=== PATIENT | female | born 1980 | race African-American/Black ===

== ENCOUNTER 2017-05-05 20:41 | Emergency (ER) | payer OTHER ==
[~2017-05-05] VITALS: Ht 172.7 cm; Wt 129.3 kg
[~2017-05-05 20:41] MED LIST: ACETAMINOPHEN-1 EAC1 PO; HYDROCHLOROTHIA25 M2; METFORMIN HCL500 MG; PENICILLIN VK250 MG PO; TOPROL XL100 MG
[2017-05-05] MEDS ORDERED: TOPROL XL100 MG PO (20:55)
[2017-05-05] MEDS ORDERED: HYDROCHLOROTHIA25 M2 PO (20:55)
[2017-05-05 20:59] VITALS: BP 144/84
== END 2017-05-05 21:00 | disposition home or self-care (01) ==
LOC: M.ERS 20:41
DX: I10 Essential (primary) hypertension (principal); E11.9 Type 2 diabetes mellitus without complications; F17.210 Nicotine dependence, cigarettes, uncomplicated; Z98.890 Other specified postprocedural states

== ENCOUNTER 2017-07-10 00:33 | Emergency (ER) | payer OTHER ==
[~2017-07-10] VITALS: Ht 170.2 cm; Wt 131.1 kg
[~2017-07-10 00:33] MED LIST changes: +HYDROCHLOROTHIA25 M2 PO; +TOPROL XL100 MG PO
[2017-07-10] MEDS ORDERED: DIFLUCAN150 MG PO (00:51)
[2017-07-10] MEDS ORDERED: ULTRAM 50MG TAB50 MG PO (00:51)
[2017-07-10] MEDS ORDERED: AMOXICILLIN 50500 MG PO (00:51)
[2017-07-10 01:04] VITALS: BP 145/64
== END 2017-07-10 01:05 | disposition home or self-care (01) ==
LOC: M.ERS 00:33
DX: K02.9 Dental caries, unspecified (principal); K04.7 Periapical abscess without sinus; F17.210 Nicotine dependence, cigarettes, uncomplicated; E11.9 Type 2 diabetes mellitus without complications

== ENCOUNTER 2017-08-09 17:01 | Emergency (ER) | payer OTHER ==
[~2017-08-09] VITALS: Ht 172.7 cm; Wt 140.2 kg
[~2017-08-09 17:01] MED LIST changes: +AMOXICILLIN 50500 MG PO; +DIFLUCAN150 MG PO; +ULTRAM 50MG TAB50 MG PO
[2017-08-09 17:05] VITALS: BP 155/98
[2017-08-09] MEDS ORDERED: METFORMIN HCL500 MG PO (17:13)
[2017-08-09] MEDS ORDERED: HYDROCHLOROTHIA25 M2 PO (17:13)
[2017-08-09] MEDS ORDERED: TOPROL XL100 MG PO (17:13)
== END 2017-08-09 17:35 | disposition home or self-care (01) ==
LOC: M.ERS 17:01
DX: Z76.0 Encounter for issue of repeat prescription (principal); E11.9 Type 2 diabetes mellitus without complications; F17.210 Nicotine dependence, cigarettes, uncomplicated

== ENCOUNTER 2017-09-10 18:40 | Emergency (ER) | payer OTHER ==
[~2017-09-10] VITALS: Ht 170.2 cm; Wt 140.6 kg
[~2017-09-10 18:40] MED LIST changes: +METFORMIN HCL500 MG PO
[2017-09-10 19:34] LABS: URINE BILIRUBIN NEGATIVE (Negative); URINE BLOOD NEGATIVE (Negative); URINE CLARITY CLEAR; URINE COLOR YELLOW; URINE GLUCOSE-RANDOM NEGATIVE (Negative); URINE KETONES NEGATIVE (Negative); URINE LEUKOCYTES-REFLEX NEGATIVE (Negative); URINE NITRITE-REFLEX NEGATIVE (Negative); URINE PROTEIN NEGATIVE (Negative); URINE SPECIFIC GRAVITY <= 1.005 (1.005-1.030); URINE UROBILINOGEN 0.2 E.U./dl (0.2-1.0)
[2017-09-10] MEDS ORDERED: HYDROCHLOROTHIA25 M2 PO (19:38)
[2017-09-10] MEDS ORDERED: TOPROL XL100 MG PO (19:38)
[2017-09-10] MEDS ORDERED: METFORMIN HCL500 MG PO (19:38)
[2017-09-10] MEDS ORDERED: HYDROCODONE-AP1 EAC6 PO (19:38)
[2017-09-10] MEDS ORDERED: CYCLOBENZAPRINE5 MG PO (19:55)
[2017-09-10 19:57] VITALS: BP 147/100
== END 2017-09-10 19:58 | disposition home or self-care (01) ==
LOC: M.ERS 18:40
PROVIDERS: Physician Assistant
DX: M54.5 Low back pain (principal); Z76.0 Encounter for issue of repeat prescription

== ENCOUNTER 2017-10-16 01:00 | Emergency (ER) | payer OTHER ==
[~2017-10-16] VITALS: Ht 172.7 cm; Wt 127.0 kg
[~2017-10-16 01:00] MED LIST changes: +CYCLOBENZAPRINE5 MG PO; +HYDROCODONE-AP1 EAC6 PO
[2017-10-16] MEDS ORDERED: METFORMIN HCL500 MG PO (01:17)
[2017-10-16] MEDS ORDERED: TOPROL XL100 MG PO (01:17)
[2017-10-16] MEDS ORDERED: HYDROCHLOROTHIA25 M2 PO (01:33)
[2017-10-16 01:35] VITALS: BP 146/83
== END 2017-10-16 01:36 | disposition home or self-care (01) ==
LOC: M.ERS 01:00
DX: I10 Essential (primary) hypertension (principal); Z76.0 Encounter for issue of repeat prescription; E11.9 Type 2 diabetes mellitus without complications; F17.210 Nicotine dependence, cigarettes, uncomplicated; Z98.890 Other specified postprocedural states

== ENCOUNTER 2017-11-29 20:01 | Emergency (ER) | payer OTHER ==
[~2017-11-29] VITALS: Ht 172.7 cm; Wt 140.6 kg
[2017-11-29] MEDS ORDERED: ACETAMINOPHEN-1 EAC1 PO (20:43)
[2017-11-29] MEDS ORDERED: TOPROL XL100 MG PO (20:43)
[2017-11-29] MEDS ORDERED: AMOXICILLIN 50500 MG PO (20:43)
[2017-11-29 20:50] VITALS: BP 125/81
== END 2017-11-29 20:53 | disposition home or self-care (01) ==
LOC: M.ERS 20:01
DX: K08.89 Other specified disorders of teeth and supporting structures (principal); I10 Essential (primary) hypertension; Z76.0 Encounter for issue of repeat prescription; E11.9 Type 2 diabetes mellitus without complications; F17.210 Nicotine dependence, cigarettes, uncomplicated

== ENCOUNTER 2018-02-26 18:05 | Emergency (ER) | payer OTHER ==
[~2018-02-26] VITALS: Ht 170.2 cm; Wt 138.3 kg
[2018-02-26 18:38] LABS: URINE BILIRUBIN NEGATIVE (Negative); URINE BLOOD NEGATIVE (Negative); URINE CLARITY CLEAR; URINE COLOR YELLOW; URINE GLUCOSE-RANDOM NEGATIVE (Negative); URINE KETONES NEGATIVE (Negative); URINE LEUKOCYTES-REFLEX NEGATIVE (Negative); URINE NITRITE-REFLEX NEGATIVE (Negative); URINE PROTEIN NEGATIVE (Negative); URINE UROBILINOGEN 0.2 E.U./dl (0.2-1.0)
[2018-02-26] MEDS ORDERED: FLEXERIL PO (19:35)
[2018-02-26] MEDS ORDERED: METOPROLOL SUC100 MG PO (19:35)
[2018-02-26] MEDS ORDERED: HYDROCHLOROTHIA25 M2 PO (19:36)
[2018-02-26 19:53] VITALS: BP 151/98
== END 2018-02-26 19:54 | disposition home or self-care (01) ==
LOC: M.ERS 18:05
PROVIDERS: Nurse Practitioner
DX: I10 Essential (primary) hypertension (principal); M54.5 Low back pain; F17.210 Nicotine dependence, cigarettes, uncomplicated; E11.9 Type 2 diabetes mellitus without complications; Z98.890 Other specified postprocedural states

== ENCOUNTER 2018-07-15 14:21 | Emergency (ER) | payer OTHER ==
[~2018-07-15] VITALS: Ht 172.7 cm; Wt 115.7 kg
[~2018-07-15 14:21] MED LIST changes: +FLEXERIL PO; +METOPROLOL SUC100 MG PO
[2018-07-15 15:19] LABS: INFLUENZA A ANTIGEN None Detected (None Detect); INFLUENZA B ANTIGEN None Detected (None Detect)
[2018-07-15 15:22] LABS: ABSOLUTE EOSINOPHILS 0.1 thou/uL (0.0-0.7); ABSOLUTE LYMPHOCYTES 0.6 thou/uL (0.8-5.3); ABSOLUTE MONOCYTES 0.5 thou/uL (0.0-1.2); BASOPHILS 0.5 %; EOSINOPHILS 2.5 %; HEMOGLOBIN 11.7 gm/dL (12.0-15.0); LYMPHOCYTES 11.5 %; MCH 26.9 pg (26.0-34.0); MCHC 32.6 g/dL (28.0-37.0); MCV 82.5 fL (80.0-100.0); MONOCYTES 9.1 %; MPV 8.8 fl. (7.2-11.1); NUCLEATED RBCS 0 /100WBC; PLATELET COUNT* 254 thou/uL (150-400); POLYS 76.4 %; RBC 4.37 mil/uL (4.20-5.00); RDW-CV 14.7 % (10.5-14.5); WBC 5.2 thou/uL (4.0-11.0)
[2018-07-15 15:34] LABS: ALBUMIN 3.4 g/dL (3.4-5.0); CALCIUM 9.2 mg/dL (8.5-10.1); CREATININE 0.9 mg/dL (0.6-1.3); TOTAL BILIRUBIN 0.2 mg/dL (<0.1-1.0); TOTAL PROTEIN 7.7 g/dL (6.4-8.2)
[2018-07-15] MEDS ORDERED: AMOXICILLIN 50500 MG PO (16:03)
[2018-07-15] MEDS ORDERED: NABUMETONE 750750 M1 PO (16:03)
[2018-07-15] MEDS ORDERED: MUCINEX600 MG PO (16:03)
[2018-07-15 16:11] VITALS: BP 166/88
[2018-07-15] MEDS ORDERED: LIDOCAINE VISC100 ML PO (16:15)
[2018-07-15] MEDS ORDERED: BENICAR 5 MG5 M1 PO (16:31)
[2018-07-15] MEDS ORDERED: BENICAR 5 MG5 MG PO (16:33)
[2018-07-15] MEDS ORDERED: HYDROCHLOROTHIA25 M2 PO (16:33)
[2018-07-15] MEDS ORDERED: TOPROL XL100 MG PO (16:33)
== END 2018-07-15 16:16 | disposition home or self-care (01) ==
LOC: M.ERS 14:21
PROVIDERS: Nurse Practitioner Family
DX: I10 Essential (primary) hypertension (principal); J06.9 Acute upper respiratory infection, unspecified; M79.18 Myalgia, other site; Z76.0 Encounter for issue of repeat prescription; E11.9 Type 2 diabetes mellitus without complications; F17.210 Nicotine dependence, cigarettes, uncomplicated; Z98.890 Other specified postprocedural states

== ENCOUNTER 2018-09-10 05:16 | Emergency (ER) | payer OTHER ==
[~2018-09-10] VITALS: Ht 172.7 cm; Wt 142.9 kg
[~2018-09-10 05:16] MED LIST changes: +BENICAR 5 MG5 M1 PO; +BENICAR 5 MG5 MG PO; +LIDOCAINE VISC100 ML PO; +MUCINEX600 MG PO; +NABUMETONE 750750 M1 PO
[2018-09-10] MEDS ORDERED: GLUCOPHAGE XR500 MG PO (05:29)
[2018-09-10] MEDS ORDERED: Magic Mouthwash SWISH&SPIT (05:35)
[2018-09-10] MEDS ORDERED: IBUPROFEN 800800 MG PO (05:35)
[2018-09-10] MEDS ORDERED: PERCOCET 5-3251 EACH PO (05:35)
[2018-09-10] MEDS ORDERED: [UNRECOGNIZED DRUG - OTHER] PO (05:43)
[2018-09-10 05:48] VITALS: BP 147/70
== END 2018-09-10 05:48 | disposition home or self-care (01) ==
LOC: M.ERS 05:16
DX: K08.89 Other specified disorders of teeth and supporting structures (principal); I10 Essential (primary) hypertension; E11.9 Type 2 diabetes mellitus without complications; F17.210 Nicotine dependence, cigarettes, uncomplicated; Z98.890 Other specified postprocedural states

== ENCOUNTER 2018-09-16 23:49 | Emergency (ER) | payer OTHER ==
[~2018-09-16] VITALS: Ht 172.7 cm; Wt 142.9 kg
[~2018-09-16 23:49] MED LIST changes: +GLUCOPHAGE XR500 MG PO; +IBUPROFEN 800800 MG PO; +KEFLEX500 M1 PO; +Magic Mouthwash SWISH&SPIT; +PERCOCET 5-3251 EACH PO; +[UNRECOGNIZED DRUG - OTHER] PO
[2018-09-16 23:54] VITALS: BP 135/82
== END 2018-09-17 00:21 | disposition home or self-care (01) ==
LOC: M.ERS 23:49
DX: K08.89 Other specified disorders of teeth and supporting structures (principal); E11.9 Type 2 diabetes mellitus without complications; I10 Essential (primary) hypertension; F17.210 Nicotine dependence, cigarettes, uncomplicated; Z88.6 Allergy status to analgesic agent

== ENCOUNTER 2018-09-28 13:23 | Emergency (ER) | payer OTHER ==
[~2018-09-28] VITALS: Ht 170.2 cm; Wt 142.9 kg
[2018-09-28 13:35] VITALS: BP 134/75
[2018-09-28] MEDS ORDERED: BENICAR 5 MG5 MG PO ×2 (13:39→14:06)
== END 2018-09-28 14:12 | disposition home or self-care (01) ==
LOC: M.ERS 13:23
DX: I10 Essential (primary) hypertension (principal); Z76.0 Encounter for issue of repeat prescription; F17.210 Nicotine dependence, cigarettes, uncomplicated; E11.9 Type 2 diabetes mellitus without complications; Z98.890 Other specified postprocedural states; Z88.6 Allergy status to analgesic agent

== ENCOUNTER 2019-03-02 17:47 | Emergency (ER) | payer OTHER ==
[~2019-03-02] VITALS: Ht 170.2 cm; Wt 133.4 kg
[2019-03-02 17:54] VITALS: BP 153/98
[2019-03-02] MEDS ORDERED: SUBOXONE 8 MG-1 EAC3 SUBLING (18:02)
[2019-03-02] MEDS ORDERED: PENICILLIN V P500 MG PO (18:07)
[2019-03-02] MEDS ORDERED: NABUMETONE 750750 M1 PO (18:07)
[2019-03-02] MEDS ORDERED: NORCO 5-325 TA1 EAC1 PO (18:09)
== END 2019-03-02 18:35 | disposition home or self-care (01) ==
LOC: M.ERS 17:47
DX: K04.7 Periapical abscess without sinus (principal); I10 Essential (primary) hypertension; E11.9 Type 2 diabetes mellitus without complications; F17.210 Nicotine dependence, cigarettes, uncomplicated; Z88.6 Allergy status to analgesic agent; Z98.890 Other specified postprocedural states

== ENCOUNTER 2019-06-23 13:16 | Emergency (ER) | payer OTHER ==
[~2019-06-23] VITALS: Ht 170.2 cm; Wt 136.1 kg
[~2019-06-23 13:16] MED LIST changes: +NORCO 5-325 TA1 EAC1 PO; +PENICILLIN V P500 MG PO; +SUBOXONE 8 MG-1 EAC3 SUBLING
[2019-06-23] MEDS ORDERED: METFORMIN HCL1000 MG PO (14:13)
[2019-06-23] MEDS ORDERED: OLMESARTAN MEDOX5 MG PO (14:13)
[2019-06-23 14:18] VITALS: BP 130/80
== END 2019-06-23 14:18 | disposition home or self-care (01) ==
LOC: M.ERS 13:16
DX: E11.9 Type 2 diabetes mellitus without complications (principal); I10 Essential (primary) hypertension; Z76.0 Encounter for issue of repeat prescription; F17.210 Nicotine dependence, cigarettes, uncomplicated; Z88.6 Allergy status to analgesic agent

== ENCOUNTER 2020-07-05 14:55 | Emergency (ER) | payer OTHER ==
[~2020-07-05] VITALS: Ht 172.7 cm; Wt 140.6 kg
[~2020-07-05 14:55] MED LIST changes: +METFORMIN HCL1000 MG PO; +OLMESARTAN MEDOX5 MG PO
[2020-07-05] MEDS ORDERED: IBUPROFEN 800800 M1 PO (15:56)
[2020-07-05] MEDS ORDERED: NORCO5 PO (15:56)
[2020-07-05 16:17] VITALS: BP 139/81
== END 2020-07-05 16:18 | disposition home or self-care (01) ==
LOC: M.ERS 14:55
DX: M25.512 Pain in left shoulder (principal); W01.0XXA Fall on same level from slipping, tripping and stumbling without subsequent striking against object, initial encounter; Y93.89 Activity, other specified; Y92.89 Other specified places as the place of occurrence of the external cause; Y99.8 Other external cause status

== ENCOUNTER 2020-07-24 09:50 | Emergency (ER) | payer OTHER ==
[~2020-07-24] VITALS: Ht 172.7 cm; Wt 140.6 kg
[~2020-07-24 09:50] MED LIST changes: +IBUPROFEN 800800 M1 PO; +NORCO5 PO
[2020-07-24] MEDS ORDERED: METFORMIN HCL500 M3 PO (10:23)
[2020-07-24 10:56] VITALS: BP 135/85
== END 2020-07-24 10:58 | disposition home or self-care (01) ==
LOC: M.ERS 09:50
DX: E11.9 Type 2 diabetes mellitus without complications (principal); R59.1 Generalized enlarged lymph nodes; Z76.0 Encounter for issue of repeat prescription; I10 Essential (primary) hypertension; F17.210 Nicotine dependence, cigarettes, uncomplicated; Z98.890 Other specified postprocedural states; Z88.6 Allergy status to analgesic agent

== ENCOUNTER 2020-09-14 09:04 | Emergency (ER) | payer OTHER ==
[~2020-09-14] VITALS: Ht 172.7 cm; Wt 140.6 kg
[~2020-09-14 09:04] MED LIST changes: +METFORMIN HCL500 M3 PO
[2020-09-14 09:54] LABS: CALCIUM 8.9 mg/dL (8.5-10.1); CREATININE 0.9 mg/dL (0.6-1.3); POTASSIUM 4.3 mmol/L (3.5-5.1)
[2020-09-14 10:23] LABS: URINE BILIRUBIN NEGATIVE (Negative); URINE BLOOD NEGATIVE (Negative); URINE CLARITY CLEAR; URINE COLOR YELLOW; URINE GLUCOSE-RANDOM NEGATIVE (Negative); URINE KETONES NEGATIVE (Negative); URINE PROTEIN NEGATIVE (Negative); URINE UROBILINOGEN 0.2 E.U./dl (0.2-1.0)
[2020-09-14 10:24] LABS: URINE LEUKOCYTES-REFLEX 3+ (Negative); URINE NITRITE-REFLEX POSITIVE (Negative)
[2020-09-14 10:30] LABS: CASTS None Seen /LPF (None Seen); CRYSTALS None Seen /LPF (None Seen); MUCUS None Seen strn/LPF (None Seen); SQUAMOUS >10 Many /LPF (0-3); URINE RBC 0-2 Rare /HPF (0-2); URINE WBC-REFLEX 6-15 Few /HPF (0-5)
[2020-09-14] MEDS ORDERED: METFORMIN HCL500 MG PO (10:43)
[2020-09-14] MEDS ORDERED: AUGMENTIN 875-1 EACH PO (10:43)
[2020-09-14 10:54] VITALS: BP 151/85
== END 2020-09-14 10:57 | disposition home or self-care (01) ==
LOC: M.ERS 09:04
PROVIDERS: Emergency Medicine Emergency Medical Services
DX: N39.0 Urinary tract infection, site not specified (principal); Z76.0 Encounter for issue of repeat prescription; E11.9 Type 2 diabetes mellitus without complications; I10 Essential (primary) hypertension; F17.210 Nicotine dependence, cigarettes, uncomplicated; Z88.6 Allergy status to analgesic agent; Z98.890 Other specified postprocedural states

== ENCOUNTER 2020-11-04 17:04 | Emergency (ER) | payer OTHER ==
[~2020-11-04] VITALS: Ht 172.7 cm; Wt 140.6 kg
[~2020-11-04 17:04] MED LIST changes: +AUGMENTIN 875-1 EACH PO
[2020-11-04] MEDS ORDERED: BENICAR 5 MG5 M1 PO ×2 (17:21→18:32)
[2020-11-04] MEDS ORDERED: GLUMETZA1000 PO (18:32)
[2020-11-04 19:43] VITALS: BP 150/92
== END 2020-11-04 19:00 | disposition home or self-care (01) ==
LOC: M.ERS 17:04
DX: E11.9 Type 2 diabetes mellitus without complications (principal); Z76.0 Encounter for issue of repeat prescription; F17.210 Nicotine dependence, cigarettes, uncomplicated; Z88.6 Allergy status to analgesic agent; I10 Essential (primary) hypertension; Z98.890 Other specified postprocedural states

== ENCOUNTER 2020-12-01 20:39 | Emergency (ER) | payer OTHER ==
[~2020-12-01] VITALS: Ht 170.2 cm; Wt 140.6 kg
[~2020-12-01 20:39] MED LIST changes: +GLUMETZA1000 PO
[2020-12-01 22:25] VITALS: BP 147/105
== END 2020-12-01 22:25 | disposition left against medical advice (07) ==
LOC: M.ERS 20:39
DX: I10 Essential (primary) hypertension (principal); Z76.0 Encounter for issue of repeat prescription; Z53.21 Procedure and treatment not carried out due to patient leaving prior to being seen by health care provider